=== PATIENT | female | born 1930 | race Caucasian/White ===

== ENCOUNTER 2016-07-06 21:45 | Observation (INO) | payer MEDICARE, OTHER ==
--- NOTE | 2016-07-06 21:54 | EDM.PDOC ---
ED HPI GENERAL MEDICAL PROBLEM - General Stated Complaint: SWOLLEN FACE Time Seen by Provider: 07/06/16 21:49 - History of Present Illness INITIAL COMMENTS - FREE TEXT/NARRATIVE: HISTORY AND PHYSICAL: History of present illness: Patient's an 86-year-old white female presents from [facility] with right facial lip and lingual edema times tonight patient is on lisinopril and states her mood medications have been stable there's been no recent changes she denies prior episodes she is a reasonable historian but has some limitations due to advanced age she is an extensive past medical history and has no other complaints Review of systems: As per history of present illness and below otherwise all systems reviewed and negative. Past medical history: As per history of present illness and as reviewed below otherwise noncontributory. Surgical history: As per history of present illness and as reviewed below otherwise noncontributory. Social history: No reported history of drug or alcohol abuse. Family history: As per history of present illness and as reviewed below otherwise noncontributory. Physical exam: HEENT: Angioedema noted right and left lip right common pharynx is normal Atraumatic, normocephalic, pupils reactive, negative for conjunctival pallor or scleral icterus, mucous membranes moist, throat clear, neck supple, nontender, trachea midline. Lungs: Clear to auscultation, breath sounds equal bilaterally, chest nontender. Heart: S1S2, regular, negative for clicks, rubs, or JVD. Abdomen: Soft, nondistended, nontender. Negative for masses or hepatosplenomegaly. Negative for costovertebral tenderness. Pelvis: Stable nontender. Genitourinary: Deferred. Rectal: Deferred. Extremities: Atraumatic, negative for cords or calf pain. Neurovascular unremarkable. Neuro: Awake, alert, oriented. Cranial nerves II through XII unremarkable. Cerebellum unremarkable. Motor and sensory unremarkable throughout. Exam nonfocal. Diagnostics: CBC CMP chest x-ray EKG Therapeutics: Solu-Medrol 125 mg IV Benadryl 25 mg a Impression: #1 angioedema #2 rule out drug reaction Definitive disposition and diagnosis as appropriate pending reevaluation and review of above. - Related Data Allergies Allergy/AdvReac Type Severity Reaction Status Date / Time No Known Allergies Allergy Verified 07/06/16 21:52 Home Meds: Home Meds Acetaminophen/Diphenhydramine [Tylenol Pm Ex-Strength Caplet] 1 tab PO DAILY [History] Aspirin 81 mg PO DAILY 06/23/15 [History] Levothyroxine [Synthroid] 88 mcg PO DAILY 06/23/15 [History] Lisinopril 20 mg PO DAILY #20 tablet 06/27/15 [Rx] atorvaSTATin [Lipitor] 40 mg PO BEDTIME #20 tablet 06/27/15 [Rx] Desoximetasone [Topicort 0.25% Crm] 60 gm .XX BID #1 tube 12/27/15 [Rx] Past Medical History HEENT History: Reports: None Cardiovascular History: Reports: Hypertension Respiratory History: Reports: None Gastrointestinal History: Reports: None Genitourinary History: Reports: None 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: None Musculoskeletal History: Reports: Gout, Osteoarthritis, Osteoporosis Neurological History: Reports: CVA Psychiatric History: Reports: None Endocrine/Metabolic History: Reports: Other (see below) Other Endocrine/Metabolic History: thyroid disease Immunologic History: Reports: None Dermatologic History: Reports: None - Infectious Disease History Infectious Disease History: Reports: None - Past Surgical History Cardiovascular Surgical History: Reports: None Endocrine Surgical History: Reports: None Neurological Surgical History: Reports: None Musculoskeletal Surgical History: Reports: Arthroscopic procedure Other Musculoskeletal Surgeries/Procedures:: right knee surgery, left knee replacement. Social & Family History - Family History Family Medical History: Noncontributory HEENT: Reports: Cataract Cardiac: Reports: Aneurysm, CAD Respiratory: Reports: Other (see below) Other Respiratory Family Hisory: PNA Musculoskeletal: Reports: Gout, Osteoarthritis, Osteoporosis Endocrine/Metabolic: Reports: Diabetes, type I - Tobacco Use Smoking Status *Q: Never Smoker - Recreational Drug Use Recreational Drug Use: No ED ROS GENERAL - Review of Systems Review Of Systems: ROS reveals no pertinent complaints other than HPI. ED EXAM, GENERAL - Physical Exam Exam: See Below (See dictation) Course - Vital Signs Last Recorded V/S: Last Vital Signs Temp Pulse 74 07/06/16 22:51 Resp 18 07/06/16 22:51 BP 175/89 H 07/06/16 22:51 Pulse Ox 98 07/06/16 22:51 - Orders/Labs/Meds Orders: Active Orders 24 hr Category Date Time Status EKG Documentation Completion [RC] STAT Care 07/06/16 21:55 Active Chest 1V Frontal [CR] Stat Exams 07/06/16 21:55 Taken Labs: Laboratory Tests 07/06/16 07/06/16 Range/Units 22:10 22:10 WBC 7.74 (4.0-11.0) K/uL RBC 4.21 L (4.30-5.90) M/uL Hgb 12.5 (12.0-16.0) g/dL Hct 37.0 (36.0-46.0) % MCV 87.9 (80.0-98.0) fL MCH 29.7 (27.0-32.0) pg MCHC 33.8 (31.0-37.0) g/dL RDW Std Deviation 47.2 (28.0-62.0) fl RDW Coeff of Tuyet 15 (11.0-15.0) % Plt Count 239 (150-400) K/uL MPV 8.90 (7.40-12.00) fL Neut % (Auto) 68.3 (48.0-80.0) % Lymph % (Auto) 20.2 (16.0-40.0) % [place] % (Auto) 7.1 (0.0-15.0) % Eos % (Auto) 3.2 (0.0-7.0) % Baso % (Auto) 1.2 (0.0-1.5) % Neut # 5.3 (1.4-5.7) K/uL Lymph # 1.6 (0.6-2.4) K/uL [place] # 0.6 (0.0-0.8) K/uL Eos # 0.3 (0.0-0.7) K/uL Baso # 0.1 (0.0-0.1) K/uL Nucleated RBC % 0.0 /100WBC Nucleated RBCs # 0 K/uL Sodium 135 L (136-146) mmol/L Potassium 4.3 (3.5-5.1) mmol/L Chloride 102 (98-110) mmol/L Carbon Dioxide 23 (21-31) mmol/L BUN 16 (6.0-23.0) mg/dL Creatinine 0.9 (0.6-1.5) mg/dL Est Cr Clr Drug Dosing TNP Estimated GFR (MDRD) 59.2 ml/min Glucose 108 (60-110) mg/dL Calcium 9.3 (8.8-10.8) mg/dL Total Bilirubin 0.3 (0.1-1.5) mg/dL AST 28 (5-40) IU/L ALT 22 (8-54) IU/L Alkaline Phosphatase 106 (40-150) Total Protein 7.0 (6.0-8.0) g/dL Albumin 3.8 (3.4-4.8) g/dL Globulin 3.2 (2.0-3.5) g/dL Albumin/Globulin Ratio 1.2 L (1.3-2.8) Meds: Medications Discontinued Medications Generic Name Dose Route Start Last Admin Trade Name Freq PRN Reason Stop Dose Admin Diphenhydramine HCl 25 mg 07/06/16 21:55 07/06/16 22:06 Benadryl IVPUSH 07/06/16 21:56 25 mg ONETIME ONE Administration Methylprednisolone Sodium Succinate 125 mg 07/06/16 21:55 07/06/16 22:10 Solu-Medrol IVPUSH 07/06/16 21:56 125 mg ONETIME ONE Administration Departure - Departure Time of Disposition: 23:13 Disposition: Admitted As Inpatient 65 Condition: good Clinical Impression: Angioedema - My Orders Last 24 Hours: My Active Orders 07/06/16 21:55 EKG Documentation Completion [RC] STAT Chest 1V Frontal [CR] Stat - Assessment/Plan Last 24 Hours: My Active Orders 07/06/16 21:55 EKG Documentation Completion [RC] STAT Chest 1V Frontal [CR] Stat
[2016-07-06] MEDS ORDERED: methylPREDNISolone Sodium Succinate 125 MG/2 ML SDV IVPUSH ONE (21:55)
[2016-07-06] MEDS ORDERED: diphenhydrAMINE 50 MG/ML SDV IVPUSH ONE (21:55)
[2016-07-06 22:39] LABS: CHLORIDE,CL 102 mmol/L (98-110); SODIUM,NA 135 mmol/L (136-146)
[2016-07-07] MEDS ORDERED: Morphine 2 MG/ML Syringe IVPUSH PRN (00:46)
[2016-07-07] MEDS ORDERED: cloNIDine 0.1 MG Tab PO ONE (00:46)
[2016-07-07] MEDS: Sodium Chloride 0.45% 1,000 ML IV SCH ×2 (01:36→16:32)
[2016-07-07] MEDS: diphenhydrAMINE 50 MG/ML SDV IVPUSH SCH ×4 (03:53→23:26)
[2016-07-07] MEDS: methylPREDNISolone Sodium Succinate 40 MG/1 ML SDV IVPUSH SCH ×4 (03:56→23:21)
[2016-07-07] MEDS ORDERED: Albuterol/Ipratropium 3.0-0.5 MG/3 ML Neb Soln NEB PRN (06:53)
[2016-07-07] MEDS ORDERED: Sodium Chloride 0.9% 10 ML Syringe FLUSH PRN (06:53)
[2016-07-07] MEDS ORDERED: Sodium Chloride 0.9% 2.5 ML Syringe FLUSH PRN (06:53)
[2016-07-07] MEDS ORDERED: Loperamide 2 MG Cap PO PRN (06:56)
[2016-07-07] MEDS ORDERED: Carboxymethylcellulose Sodium 0.5% Ophth Soln 0.4 ML UD Box of 30 EYEBOTH PRN (06:56)
[2016-07-07] MEDS ORDERED: CARBOXYMETHYLCELLULOSE EYEBOTH PRN (06:56)
[2016-07-07] MEDS ORDERED: Magnesium Hydroxide 400 MG/5 ML Susp 30 ML Cup PO PRN (06:56)
[2016-07-07] MEDS ORDERED: Bisacodyl 10 MG Supp RECTAL SCH (07:00)
[2016-07-07] MEDS ORDERED: Levothyroxine 100 MCG Tab PO SCH (07:35)
--- NOTE | 2016-07-07 08:26 | PCM.HP ---
<Monique Whaley - Last Filed: 07/07/16 11:01> H&P History of Present Illness - General Date of Service: 07/07/16 Admit Problem/Dx: Admission Diagnosis/Problem Admission Diagnosis/Problem Angioedema Source of Information: Patient - History of Present Illness Initial Comments - Free Text/Narative: 86 yo female from [facility] patient admitted for angioedema. She did not eat anything unusual. She has not started on any new medications. Difficult to obtain history from patient. Per nurse report she was noted to have lip swelling , facial edema and erythema with warmth last night at [facility]. In the ED her VSS. She recieved I.V methylprednisolone and benadryl. Spoke to the family in the hospital: they are not aware of any new medications except her synthroid was increased yesterday. She also had mixed nuts. She has been on lisinopril for years and did not have problems. Back Pain Score (Numeric/FACES): 4 - Related Data Allergies/Adverse Reactions: Allergies Allergy/AdvReac Type Severity Reaction Status Date / Time lisinopril Allergy Facial Verified 07/07/16 01:44 Swelling Home Medications: Home Meds Bisacodyl [Biscolax] 10 mg RC Q24H PRN 07/06/16 [History] Carbamide Peroxide [Debrox 6.5% Otic Soln] 1 drop EARBOTH BEDTIME PRN 07/06/16 [ History] Donepezil [Aricept] 5 mg PO DAILY 07/06/16 [History] Ibuprofen 400 mg PO BEDTIME PRN 07/06/16 [History] Loperamide HCl [Imodium A-D] 2 mg PO ASDIRECTED PRN MDD 8 mg 07/06/16 [History] Magnesium Hydroxide [Milk of Magnesia] 30 ml PO DAILY PRN 07/06/16 [History] Multivitamin [Multi-Vitamin Daily] 1 each PO DAILY 07/06/16 [History] Omeprazole 20 mg PO DAILY 07/06/16 [History] diphenhydrAMINE HCl [Banophen] 25 mg PO Q4HR PRN 07/06/16 [History] Acetaminophen [Acetaminophen Extra Strength] 500 mg PO QID PRN 07/07/16 [History ] Biotin 500 mcg PO DAILY 07/07/16 [History] Carboxymethylcellulose Sodium [Refresh Tears 0.5%] 1 drop EYEBOTH ASDIRECTED PRN 07/07/16 [History] Dextran 70/Hypromellose [Artificial Tears] 1 drop EYEBOTH BID PRN 07/07/16 [ History] Dextran 70/Hypromellose [Artificial Tears] 1 drop EYEBOTH TID PRN 07/07/16 [ History] Levothyroxine 125 mcg PO ACBREAKFAST 07/07/16 [History] Lisinopril 20 mg PO DAILY 07/07/16 [History] Melatonin 9 mg PO BEDTIME 07/07/16 [History] Nystatin [Nystop] 1 applic TOP TID 07/07/16 [History] Psyllium Husk (With Sugar) [Metamucil Powder] 2 tbsp PO DAILY PRN 07/07/16 [ History] atorvaSTATin [Lipitor] 40 mg PO BEDTIME 07/07/16 [History] buPROPion HCl [Wellbutrin SR] 150 mg PO DAILY 07/07/16 [History] Past Medical History HEENT History: Reports: Other (see below) Other HEENT History: Uses eyeglasses. Cardiovascular History: Reports: Hypertension, Other (see below) Other Cardiovascular History: stroke Respiratory History: Reports: None Gastrointestinal History: Reports: Other (see below) Other Gastrointestinal History: on omeprazole for heartburn/indigestion Genitourinary History: Reports: Urinary incontinence [employer]TE[employer] History: Reports: None Musculoskeletal History: Reports: Gout, Osteoarthritis, Osteoporosis Neurological History: Reports: CVA Psychiatric History: Reports: None Endocrine/Metabolic History: Reports: Hypothyroidism, Other (see below) Other Endocrine/Metabolic History: thyroid disease Hematologic History: Reports: None Immunologic History: Reports: None Oncologic (Cancer) History: Reports: None Dermatologic History: Reports: Other (see below) Other Dermatologic History: Redness noted to the breast folds, abdominal fold and bilaterla groin. - Infectious Disease History Infectious Disease History: Reports: None - Past Surgical History Head Surgeries/Procedures: Reports: None HEENT Surgical History: Reports: None Cardiovascular Surgical History: Reports: None GI Surgical History: Reports: None Endocrine Surgical History: Reports: None Neurological Surgical History: Reports: None Musculoskeletal Surgical History: Reports: Arthroscopic procedure Other Musculoskeletal Surgeries/Procedures:: right knee surgery, left knee replacement. Oncologic Surgical History: Reports: None Social & Family History - Family History Family Medical History: Noncontributory HEENT: Reports: Cataract Cardiac: Reports: Aneurysm, CAD Respiratory: Reports: Other (see below) Other Respiratory Family Hisory: PNA Musculoskeletal: Reports: Gout, Osteoarthritis, Osteoporosis Endocrine/Metabolic: Reports: Diabetes, type I - Tobacco Use Smoking Status *Q: Never Smoker Second Hand Smoke Exposure: No - Recreational Drug Use Recreational Drug Use: No H&P Review of Systems - Review of Systems: Review Of Systems: See Below General: Reports: no symptoms HEENT: Reports: no symptoms Pulmonary: Reports: no symptoms Cardiovascular: Reports: no symptoms Gastrointestinal: Reports: No symptoms Genitourinary: Reports: no symptoms Musculoskeletal: Reports: no symptoms Skin: Reports: no symptoms Psychiatric: Reports: no symptoms Neurological: Reports: no symptoms Hematologic/Lymphatic: Reports: no symptoms Exam - Exam Exam: See Below - Vital Signs Vital Signs: Last Vital Signs Temp 98.4 F 07/07/16 08:00 Pulse 81 07/07/16 08:00 Resp 20 07/07/16 08:00 BP 141/65 H 07/07/16 08:00 Pulse Ox 92 L 07/07/16 08:00 Weight: 207 lb 7.28 oz - Exam General: alert HEENT: EOMI, Other (Upper lip swelling and facial swelling without erythema or tenderness) Neck: supple, trachea midline Lungs: Decreased breath sounds Cardiovascular: regular rate, regular rhythm Abdomen: normal bowel sounds, soft (Female) Exam: Other (bilateral groin erythema) Extremities: normal inspection Skin: rash, other (bilateral breast and groin fold erythema. NO warmth or tenderness.) Neurological: cranial nerves intact - Patient Data Result Diagrams: 07/06/16 22:10 07/06/16 22:10 *Q Meaningful Use (ADM) - VTE *Q VTE Criteria *Q: - Stroke *Q Stroke Criteria *Q: - AMI *Q AMI Criteria *Q: Problem List Initiated/Reviewed/Updated: Yes Orders Last 24hrs: Active Orders 24 hr Category Date Time Status Patient Status [ADT] Routine ADT 07/07/16 06:53 Active Activity as Tolerated [RC] .Routine Care 07/07/16 00:44 Active Oxygen Therapy [RC] PRN Care 07/07/16 06:53 Active Pulse Oximetry [RC] PRN Care 07/07/16 06:55 Active RT Aerosol Therapy [RC] ASDIRECTED Care 07/07/16 06:56 Active Telemetry Monitoring [Cardiac Monitoring] [RC] . Care 07/07/16 00:00 Active DIRECTED Up ad Paloma [RC] ASDIRECTED Care 07/07/16 06:53 Active VTE/DVT Education [RC] PER UNIT ROUTINE Care 07/07/16 06:53 Active Vital Signs [RC] Q4H Care 07/07/16 06:53 Active Clear Liquid Diet [DIET] Diet 07/07/16 Breakfast Active Albuterol/Ipratropium [DuoNeb 3.0-0.5 MG/3 ML] Med 07/07/16 06:53 Active 3 ml NEB Q4HRRT PRN Bisacodyl [Dulcolax] Med 07/07/16 07:00 Active 10 mg RECTAL ASDIRECTED Carboxymethylcellulose Sodium [Refresh Plus 0.5%] Med 07/07/16 06:56 Active 1 each EYEBOTH BID PRN Carboxymethylcellulose Sodium [Refresh Plus 0.5%] Med 07/07/16 14:00 Active 1 each EYEBOTH TID Donepezil [Aricept] Med 07/07/16 09:00 Active 5 mg PO DAILY Enoxaparin [Lovenox] Med 07/07/16 09:00 Active 40 mg SUBCUT Q24H Levothyroxine [Synthroid] Med 07/07/16 07:35 Active 100 mcg PO ACBREAKFAST Loperamide [Imodium] Med 07/07/16 06:56 Active 2 mg PO ASDIRECTED PRN Magnesium Hydroxide [Milk of Magnesia] Med 07/07/16 06:56 Active 30 ml PO DAILY PRN Melatonin Med 07/07/16 21:00 Active 9 mg PO BEDTIME Morphine Med 07/07/16 00:46 Active 2 mg IVPUSH Q2H PRN Multivitamins [Tab-A-Manjinder] Med 07/07/16 09:00 Active 1 tab PO DAILY Nystatin [Nystatin Crm] Med 07/07/16 14:00 Active 1 gm TOP TID Omeprazole Med 07/07/16 09:00 Active 20 mg PO DAILY Patient's Own Medication [Ptom] Med 07/07/16 09:00 Active 1 each PO DAILY Psyllium Husk/Aspartame [Metamucil Sugar Free] Med 07/07/16 09:00 Active 1 pkt PO DAILY Sodium Chloride 0.45% 1,000 ml Med 07/07/16 00:45 Active IV ASDIRECTED Sodium Chloride 0.9% [Saline Flush] Med 07/07/16 06:53 Active 10 ml FLUSH ASDIRECTED PRN Sodium Chloride 0.9% [Saline Flush] Med 07/07/16 06:53 Active 2.5 ml FLUSH ASDIRECTED PRN atorvaSTATin [Lipitor] Med 07/07/16 21:00 Active 40 mg PO BEDTIME buPROPion [Wellbutrin SR] Med 07/07/16 09:00 Active 150 mg PO DAILY diphenhydrAMINE [Benadryl] Med 07/07/16 04:00 Active 50 mg IVPUSH Q6H methylPREDNISolone Sod Succ [Solu-MEDROL] Med 07/07/16 04:00 Active 60 mg IVPUSH Q6H Peripheral IV Insertion Adult [OM.PC] Routine Oth 07/07/16 06:53 Ordered Resuscitation Status Routine Resus Stat 07/07/16 06:53 Ordered Medication Orders Albuterol/Ipratropium (Duoneb 3.0-0.5 Mg/3 Ml) 3 ml NEB Q4HRRT PRN PRN Reason: Shortness Of Breath/wheezing Artificial Tears (Refresh Plus 0.5%) 1 each EYEBOTH BID PRN PRN Reason: Dry Eyes Artificial Tears (Refresh Plus 0.5%) 1 each EYEBOTH TID [facility] Atorvastatin Calcium (Lipitor) 40 mg PO BEDTIME [facility] Bisacodyl (Dulcolax) 10 mg RECTAL ASDIRECTED [facility] Bupropion HCl (Wellbutrin Sr) 150 mg PO DAILY [facility] Diphenhydramine HCl (Benadryl) 50 mg IVPUSH Q6H [facility] Last Admin: 07/07/16 03:53 Dose: 50 mg Donepezil HCl (Aricept) 5 mg PO DAILY [facility] Enoxaparin Sodium (Lovenox) 40 mg SUBCUT Q24H [facility] Sodium Chloride (Sodium Chloride 0.45%) 1,000 mls @ 75 mls/hr IV ASDIRECTED [facility] Last Admin: 07/07/16 01:36 Dose: 75 mls/hr Levothyroxine Sodium (Synthroid) 100 mcg PO ACBREAKFAST [facility] Last Admin: 07/07/16 07:59 Dose: 100 mcg Loperamide HCl (Imodium) 2 mg PO ASDIRECTED PRN PRN Reason: Diarrhea Magnesium Hydroxide (Milk Of Magnesia) 30 ml PO DAILY PRN PRN Reason: Constipation Melatonin (Melatonin) 9 mg PO BEDTIME [facility] Methylprednisolone Sodium Succinate (Solu-Medrol) 60 mg IVPUSH Q6H [facility] Last Admin: 07/07/16 03:56 Dose: 60 mg Morphine Sulfate (Morphine) 2 mg IVPUSH Q2H PRN PRN Reason: Pain Multivitamins/Minerals/Vitamin C (Tab-A-Manjinder) 1 tab PO DAILY [facility] Nystatin (Nystatin Crm) 1 gm TOP TID [facility] Omeprazole (Omeprazole) 20 mg PO DAILY [facility] Biotin 500mcg 1 each PO DAILY [facility] Psyllium Husk (Metamucil Sugar Free) 1 pkt PO DAILY [facility] Sodium Chloride (Saline Flush) 10 ml FLUSH ASDIRECTED PRN PRN Reason: Keep Vein Open Sodium Chloride (Saline Flush) 2.5 ml FLUSH ASDIRECTED PRN PRN Reason: Keep Vein Open Assessment/Plan Comment:: 86 yo female admitted for angioedema most likely lisnopril. continue methylprednisone and benadryl she is able to swallow and does not have difficult breathing. may start regular diet. monitor HTN: stable. Candidasis of groin and breast: nystatin cream <Amparo Dennis - Last Filed: 07/07/16 16:23> H&P History of Present Illness - General Admit Problem/Dx: Admission Diagnosis/Problem Admission Diagnosis/Problem Angioedema Exam - Vital Signs Vital Signs: Last Vital Signs Temp 97.7 F 07/07/16 12:00 Pulse 74 07/07/16 12:00 Resp 20 07/07/16 12:00 BP 146/73 H 07/07/16 12:00 Pulse Ox 94 L 07/07/16 12:00 - Patient Data Result Diagrams: 07/06/16 22:10 07/06/16 22:10 *Q Meaningful Use (ADM) - VTE *Q VTE Criteria *Q: - Stroke *Q Stroke Criteria *Q: - AMI *Q AMI Criteria *Q: Orders Last 24hrs: Active Orders 24 hr Category Date Time Status Patient Status [ADT] Routine ADT 07/07/16 06:53 Active Activity as Tolerated [RC] .Routine Care 07/07/16 00:44 Active Oxygen Therapy [RC] PRN Care 07/07/16 06:53 Active RT Aerosol Therapy [RC] ASDIRECTED Care 07/07/16 06:56 Active Telemetry Monitoring [Cardiac Monitoring] [RC] Q8H Care 07/07/16 00:00 Active Up ad Paloma [RC] ASDIRECTED Care 07/07/16 06:53 Active Vital Signs [RC] Q4H Care 07/07/16 06:53 Active Regular Diet [DIET] Diet 07/07/16 Lunch Active Albuterol/Ipratropium [DuoNeb 3.0-0.5 MG/3 ML] Med 07/07/16 06:53 Active 3 ml NEB Q4HRRT PRN Bisacodyl [Dulcolax] Med 07/07/16 07:00 Active 10 mg RECTAL ASDIRECTED Carboxymethylcellulose Sodium [Refresh Plus 0.5%] Med 07/07/16 06:56 Active 1 each EYEBOTH BID PRN Carboxymethylcellulose Sodium [Refresh Plus 0.5%] Med 07/07/16 14:00 Active 1 each EYEBOTH TID Donepezil [Aricept] Med 07/07/16 09:00 Active 5 mg PO DAILY Enoxaparin [Lovenox] Med 07/07/16 09:00 Active 40 mg SUBCUT Q24H Levothyroxine Med 07/08/16 07:30 Active 125 mcg PO ACBREAKFAST Loperamide [Imodium] Med 07/07/16 06:56 Active 2 mg PO ASDIRECTED PRN Magnesium Hydroxide [Milk of Magnesia] Med 07/07/16 06:56 Active 30 ml PO DAILY PRN Melatonin Med 07/07/16 21:00 Active 9 mg PO BEDTIME Morphine Med 07/07/16 00:46 Active 2 mg IVPUSH Q2H PRN Multivitamins [Tab-A-Manjinder] Med 07/07/16 09:00 Active 1 tab PO DAILY Nystatin [Nystatin Crm] Med 07/07/16 14:00 Active 1 gm TOP TID Omeprazole Med 07/07/16 09:00 Active 20 mg PO DAILY Patient's Own Medication [Ptom] Med 07/07/16 09:00 Active 1 each PO DAILY Psyllium Husk/Aspartame [Metamucil Sugar Free] Med 07/07/16 09:00 Active 1 pkt PO DAILY Sodium Chloride 0.45% 1,000 ml Med 07/07/16 00:45 Active IV ASDIRECTED Sodium Chloride 0.9% [Saline Flush] Med 07/07/16 06:53 Active 10 ml FLUSH ASDIRECTED PRN Sodium Chloride 0.9% [Saline Flush] Med 07/07/16 06:53 Active 2.5 ml FLUSH ASDIRECTED PRN atorvaSTATin [Lipitor] Med 07/07/16 21:00 Active 40 mg PO BEDTIME buPROPion [Wellbutrin SR] Med 07/07/16 09:00 Active 150 mg PO DAILY diphenhydrAMINE [Benadryl] Med 07/07/16 04:00 Active 50 mg IVPUSH Q6H methylPREDNISolone Sod Succ [Solu-MEDROL] Med 07/07/16 04:00 Active 60 mg IVPUSH Q6H Peripheral IV Insertion Adult [OM.PC] Routine Oth 07/07/16 06:53 Ordered Resuscitation Status Routine Resus Stat 07/07/16 06:53 Ordered Medication Orders Albuterol/Ipratropium (Duoneb 3.0-0.5 Mg/3 Ml) 3 ml NEB Q4HRRT PRN PRN Reason: Shortness Of Breath/wheezing Artificial Tears (Refresh Plus 0.5%) 1 each EYEBOTH BID PRN PRN Reason: Dry Eyes Artificial Tears (Refresh Plus 0.5%) 1 each EYEBOTH TID [facility] Last Admin: 07/07/16 14:09 Dose: 1 drop Atorvastatin Calcium (Lipitor) 40 mg PO BEDTIME [facility] Bisacodyl (Dulcolax) 10 mg RECTAL ASDIRECTED [facility] Bupropion HCl (Wellbutrin Sr) 150 mg PO DAILY [facility] Last Admin: 07/07/16 09:14 Dose: 150 mg Diphenhydramine HCl (Benadryl) 50 mg IVPUSH Q6H [facility] Last Admin: 07/07/16 09:15 Dose: 50 mg Admin: 07/07/16 03:53 Dose: 50 mg Donepezil HCl (Aricept) 5 mg PO DAILY [facility] Last Admin: 07/07/16 09:14 Dose: 5 mg Enoxaparin Sodium (Lovenox) 40 mg SUBCUT Q24H [facility] Last Admin: 07/07/16 09:14 Dose: 40 mg Sodium Chloride (Sodium Chloride 0.45%) 1,000 mls @ 75 mls/hr IV ASDIRECTED [facility] Last Admin: 07/07/16 01:36 Dose: 75 mls/hr Levothyroxine Sodium (Levothyroxine) 125 mcg PO ACBREAKFAST [facility] Loperamide HCl (Imodium) 2 mg PO ASDIRECTED PRN PRN Reason: Diarrhea Magnesium Hydroxide (Milk Of Magnesia) 30 ml PO DAILY PRN PRN Reason: Constipation Melatonin (Melatonin) 9 mg PO BEDTIME [facility] Methylprednisolone Sodium Succinate (Solu-Medrol) 60 mg IVPUSH Q6H [facility] Last Admin: 07/07/16 09:15 Dose: 60 mg Admin: 07/07/16 03:56 Dose: 60 mg Morphine Sulfate (Morphine) 2 mg IVPUSH Q2H PRN PRN Reason: Pain Multivitamins/Minerals/Vitamin C (Tab-A-Manjinder) 1 tab PO DAILY [facility] Last Admin: 07/07/16 09:13 Dose: 1 tab Nystatin (Nystatin Crm) 1 gm TOP TID [facility] Last Admin: 07/07/16 14:05 Dose: 1 applic Omeprazole (Omeprazole) 20 mg PO DAILY [facility] Last Admin: 07/07/16 09:13 Dose: 20 mg Biotin 500mcg 1 each PO DAILY [facility] Last Admin: 07/07/16 09:15 Dose: Psyllium Husk (Metamucil Sugar Free) 1 pkt PO DAILY [facility] Last Admin: 07/07/16 09:14 Dose: 1 pkt Sodium Chloride (Saline Flush) 10 ml FLUSH ASDIRECTED PRN PRN Reason: Keep Vein Open Sodium Chloride (Saline Flush) 2.5 ml FLUSH ASDIRECTED PRN PRN Reason: Keep Vein Open Assessment/Plan Comment:: HTN u/c - patient received last night clonidine 0.2 mg po 1 dose, will f/up bp. As lisinopril was d/c will start patient on amlodipine 10 mg po daily.
[2016-07-07] MEDS ORDERED: Non-Formulary Medication 1 Each (Lisinopril 20 MG) PO SCH (09:00)
[2016-07-07] MEDS: Omeprazole 20 MG Cap.CR PO SCH (09:13)
[2016-07-07] MEDS: Multivitamin Tab PO SCH (09:13)
[2016-07-07] MEDS: buPROPion 150 MG Tab.SR PO SCH (09:14)
[2016-07-07] MEDS: Psyllium Husk Powder Sugar Free 5.85 GM Packet PO SCH (09:14)
[2016-07-07] MEDS: Donepezil 5 MG Tab PO SCH (09:14)
[2016-07-07] MEDS: Enoxaparin 40 MG/0.4 ML Syringe SUBCUT SCH (09:14)
[2016-07-07] MEDS: BIOTIN 500 MCG PO SCH (09:15)
[2016-07-07] MEDS: Nystatin Crm 30 GM Tube TOP SCH ×2 (14:05→23:21)
[2016-07-07] MEDS: Carboxymethylcellulose Sodium 0.5% Ophth Soln 0.4 ML UD Box of 30 EYEBOTH SCH ×2 (14:09→23:20)
--- NOTE | 2016-07-07 14:22 | CR ---
EXAM DATE: 07/06/16 PATIENT'S AGE: 86 Patient: STEF LOMELI Facility: [place], [place] Site . Site : [id number] Study: XRay Chest [id number] 10:[id number] PM Ordering Physician: Doctor Gibson Final Report: Indication: Headache Technique: Chest 1 view. Comparison: December 27, 2019 60 Findings: Cardiovascular and mediastinum: Heart size and vasculature are normal in caliber and appearance. Mediastinum is within normal limits. Lungs and pleural space: Lungs are clear. No sign of infiltrate or mass. No sign of pleural effusion. No pneumothorax. Bones and soft tissues: No significant findings. Impression: No sign of acute disease. Dictated by Jaylyn Robles MD @ Jul 06 2016 10:18PM (Electronic Signature) Report Signed by Proxy and Original Signed Document filed in the Medical Record. SADIE
[2016-07-07] MEDS ORDERED: Melatonin 3 MG Tab PO SCH (21:00)
[2016-07-07] MEDS ORDERED: atorvaSTATin 40 MG Tab PO SCH (21:00)
[2016-07-08] MEDS: diphenhydrAMINE 50 MG/ML SDV IVPUSH SCH (04:10)
[2016-07-08] MEDS: methylPREDNISolone Sodium Succinate 40 MG/1 ML SDV IVPUSH SCH (04:17)
[2016-07-08] MEDS: Sodium Chloride 0.45% 1,000 ML IV SCH (06:35)
[2016-07-08] MEDS: Carboxymethylcellulose Sodium 0.5% Ophth Soln 0.4 ML UD Box of 30 EYEBOTH SCH (06:38)
[2016-07-08] MEDS: Nystatin Crm 30 GM Tube TOP SCH (06:39)
[2016-07-08] MEDS ORDERED: Levothyroxine 125 MCG Tab PO SCH (07:30)
[2016-07-08] MEDS: buPROPion 150 MG Tab.SR PO SCH (08:45)
[2016-07-08] MEDS: Donepezil 5 MG Tab PO SCH (08:45)
[2016-07-08] MEDS: Omeprazole 20 MG Cap.CR PO SCH (08:45)
[2016-07-08] MEDS: Psyllium Husk Powder Sugar Free 5.85 GM Packet PO SCH (08:45)
[2016-07-08] MEDS: Multivitamin Tab PO SCH (08:45)
[2016-07-08] MEDS: BIOTIN 500 MCG PO SCH (08:46)
[2016-07-08] MEDS: Enoxaparin 40 MG/0.4 ML Syringe SUBCUT SCH (08:46)
--- NOTE | 2016-07-08 11:01 | PCM.DCSUM1 ---
<JuddMonique - Last Filed: 07/08/16 12:56> Discharge Summary - Hospital Course Free Text/Narrative:: 86 [facility] for angioedema of the face. She had lip swelling and facial erythema. She was started on I.V steroids and benadryl. Her lisinopril was discontinued. Her facial erythema and lip swelling had improved. She was able to eat. She was started on norvasc for blood pressure. She is discharged with one more day PO prednisone. - Discharge Data Discharge Date: 07/08/16 Discharge Disposition: DC/Tfer to [facility] 03 Condition: Good - Patient Instructions Diet: Regular Diet as Tolerated Activity: As Tolerated Driving: Do Not Drive Showering/Bathing: May Shower Notify Provider of: Fever, Increased Pain, Swelling and Redness, Drainage, Nausea and/or Vomiting - Discharge Plan Home Medications: Home Meds Bisacodyl [Biscolax] 10 mg RC Q24H PRN 07/06/16 [History] Carbamide Peroxide [Debrox 6.5% Otic Soln] 1 drop EARBOTH BEDTIME PRN 07/06/16 [ History] Donepezil [Aricept] 5 mg PO DAILY 07/06/16 [History] Ibuprofen 400 mg PO BEDTIME PRN 07/06/16 [History] Loperamide HCl [Imodium A-D] 2 mg PO ASDIRECTED PRN MDD 8 mg 07/06/16 [History] Magnesium Hydroxide [Milk of Magnesia] 30 ml PO DAILY PRN 07/06/16 [History] Multivitamin [Multi-Vitamin Daily] 1 each PO DAILY 07/06/16 [History] Omeprazole 20 mg PO DAILY 07/06/16 [History] diphenhydrAMINE HCl [Banophen] 25 mg PO Q4HR PRN 07/06/16 [History] Acetaminophen [Acetaminophen Extra Strength] 500 mg PO QID PRN 07/07/16 [History ] Biotin 500 mcg PO DAILY 07/07/16 [History] Carboxymethylcellulose Sodium [Refresh Tears 0.5%] 1 drop EYEBOTH ASDIRECTED PRN 07/07/16 [History] Dextran 70/Hypromellose [Artificial Tears] 1 drop EYEBOTH BID PRN 07/07/16 [ History] Dextran 70/Hypromellose [Artificial Tears] 1 drop EYEBOTH TID PRN 07/07/16 [ History] Levothyroxine 125 mcg PO ACBREAKFAST 07/07/16 [History] Melatonin 9 mg PO BEDTIME 07/07/16 [History] Nystatin [Nystop] 1 applic TOP TID 07/07/16 [History] Psyllium Husk (With Sugar) [Metamucil Powder] 2 tbsp PO DAILY PRN 07/07/16 [ History] atorvaSTATin [Lipitor] 40 mg PO BEDTIME 07/07/16 [History] buPROPion HCl [Wellbutrin SR] 150 mg PO DAILY 07/07/16 [History] Patient Handouts: Angioedema, [id number] Referrals: Sterling Diaz MD [Primary Care Provider] - 07/22/16 (On his next [place] rounds. ) - General Info Date of Service: 07/08/16 Functional Status: Reports: tolerating diet - Review of Systems General: Reports: no symptoms HEENT: Reports: no symptoms Pulmonary: Reports: no symptoms Cardiovascular: Reports: no symptoms Gastrointestinal: Reports: No symptoms Musculoskeletal: Reports: no symptoms Skin: Reports: no symptoms Neurological: Reports: no symptoms Psychiatric: Reports: no symptoms - Patient Data Vitals - Most Recent: Last Vital Signs Temp 97.8 F 07/08/16 08:00 Pulse 90 07/08/16 08:00 Resp 20 07/08/16 08:00 BP 128/61 07/08/16 08:00 Pulse Ox 96 07/08/16 08:00 Weight - Most Recent: 207 lb 7.28 oz I&O - Last 24 hours: Intake & Output 07/07/16 07/08/16 07/08/16 22:59 06:59 14:59 Intake Total 1531 1629 Output Total 707 Balance 1531 922 Med Orders - Current: Current Medications Albuterol/Ipratropium (Duoneb 3.0-0.5 Mg/3 Ml) 3 ml NEB Q4HRRT PRN PRN Reason: Shortness Of Breath/wheezing Artificial Tears (Refresh Plus 0.5%) 1 each EYEBOTH BID PRN PRN Reason: Dry Eyes Artificial Tears (Refresh Plus 0.5%) 1 each EYEBOTH TID ZAFAR Last Admin: 07/08/16 06:38 Dose: 1 drop Atorvastatin Calcium (Lipitor) 40 mg PO BEDTIME [facility] Last Admin: 07/07/16 20:41 Dose: 40 mg Bisacodyl (Dulcolax) 10 mg RECTAL ASDIRECTED [facility] Bupropion HCl (Wellbutrin Sr) 150 mg PO DAILY [facility] Last Admin: 07/08/16 08:45 Dose: 150 mg Donepezil HCl (Aricept) 5 mg PO DAILY [facility] Last Admin: 07/08/16 08:45 Dose: 5 mg Enoxaparin Sodium (Lovenox) 40 mg SUBCUT Q24H [facility] Last Admin: 07/08/16 08:46 Dose: 40 mg Sodium Chloride (Sodium Chloride 0.45%) 1,000 mls @ 75 mls/hr IV ASDIRECTED [facility] Last Admin: 07/08/16 06:35 Dose: 75 mls/hr Levothyroxine Sodium (Levothyroxine) 125 mcg PO ACBREAKFAST [facility] Last Admin: 07/08/16 06:38 Dose: 125 mcg Loperamide HCl (Imodium) 2 mg PO ASDIRECTED PRN PRN Reason: Diarrhea Magnesium Hydroxide (Milk Of Magnesia) 30 ml PO DAILY PRN PRN Reason: Constipation Melatonin (Melatonin) 9 mg PO BEDTIME [facility] Last Admin: 07/07/16 20:41 Dose: 9 mg Morphine Sulfate (Morphine) 2 mg IVPUSH Q2H PRN PRN Reason: Pain Multivitamins/Minerals/Vitamin C (Tab-A-Manjinder) 1 tab PO DAILY [facility] Last Admin: 07/08/16 08:45 Dose: 1 tab Nystatin (Nystatin Crm) 1 gm TOP TID [facility] Last Admin: 07/08/16 06:39 Dose: 1 applic Omeprazole (Omeprazole) 20 mg PO DAILY [facility] Last Admin: 07/08/16 08:45 Dose: 20 mg Biotin 500mcg 1 each PO DAILY [facility] Last Admin: 07/08/16 08:46 Dose: Not Given Psyllium Husk (Metamucil Sugar Free) 1 pkt PO DAILY [facility] Last Admin: 07/08/16 08:45 Dose: 1 pkt Sodium Chloride (Saline Flush) 10 ml FLUSH ASDIRECTED PRN PRN Reason: Keep Vein Open Last Admin: 07/08/16 04:13 Dose: 10 ml Sodium Chloride (Saline Flush) 2.5 ml FLUSH ASDIRECTED PRN PRN Reason: Keep Vein Open Discontinued Medications Clonidine HCl (Catapres) 0.2 mg PO ONETIME ONE Stop: 07/07/16 00:47 Last Admin: 07/07/16 01:31 Dose: 0.2 mg Diphenhydramine HCl (Benadryl) 25 mg IVPUSH ONETIME ONE Stop: 07/06/16 21:56 Last Admin: 07/06/16 22:06 Dose: 25 mg Diphenhydramine HCl (Benadryl) 50 mg IVPUSH Q6H [facility] Last Admin: 07/08/16 04:10 Dose: 50 mg Levothyroxine Sodium (Synthroid) 100 mcg PO ACBREAKFAST [facility] Last Admin: 07/07/16 07:59 Dose: 100 mcg Methylprednisolone Sodium Succinate (Solu-Medrol) 125 mg IVPUSH ONETIME ONE Stop: 07/06/16 21:56 Last Admin: 07/06/16 22:10 Dose: 125 mg Methylprednisolone Sodium Succinate (Solu-Medrol) 60 mg IVPUSH Q6H [facility] Last Admin: 07/08/16 04:17 Dose: 60 mg Non-Formulary Medication (Lisinopril) 20 mg PO DAILY [facility] Non-Formulary Medication (Carboxymethylcellulose [Methocel E 4 M]) 1 drop EYEBOTH DAILY PRN PRN Reason: Dry Eyes - Exam General: Reports: alert, oriented HEENT: Reports: Pupils equal, EOMI, Other (lips swelling has improved. NO facial edema or erythema) Neck: Reports: supple, trachea midline Lungs: Reports: Clear to auscultation, Normal respiratory effort Cardiovascular: Reports: regular rate, regular rhythm Abdomen: Reports: bowel sounds present, soft Back Exam: Reports: normal inspection Extremities: Reports: no edema Skin: Reports: warm, dry, intact Neurological: Reports: no new focal deficit Psy/Mental Status: Reports: alert, normal affect, normal mood *Q Meaningful Use (DIS) - VTE *Q VTE Criteria *Q: - Stroke *Q Stroke Criteria *Q: - AMI *Q AMI Criteria *Q: <Amparo Dennis - Last Filed: 07/08/16 20:43> Discharge Summary - Hospital Course Free Text/Narrative:: Patient was seen and examined , agree with discharge summary. She was discussed with resident. For blood pressure patient was started on amlodipine 10 mg po daily , f/up BP. - Patient Data Vitals - Most Recent: Last Vital Signs Temp 97.8 F 07/08/16 12:00 Pulse 87 07/08/16 12:00 Resp 22 H 07/08/16 12:00 BP 170/78 H 07/08/16 12:27 Pulse Ox 98 07/08/16 12:00 I&O - Last 24 hours: Intake & Output 07/08/16 07/08/16 07/08/16 06:59 14:59 22:59 Intake Total 1629 500 Output Total 707 700 Balance 922 -200 Med Orders - Current: Current Medications Discontinued Medications Albuterol/Ipratropium (Duoneb 3.0-0.5 Mg/3 Ml) 3 ml NEB Q4HRRT PRN PRN Reason: Shortness Of Breath/wheezing Amlodipine Besylate (Norvasc) 10 mg PO DAILY [facility] Amlodipine Besylate (Norvasc) 10 mg PO ONETIME ONE Stop: 07/08/16 11:59 Last Admin: 07/08/16 12:27 Dose: 10 mg Artificial Tears (Refresh Plus 0.5%) 1 each EYEBOTH BID PRN PRN Reason: Dry Eyes Artificial Tears (Refresh Plus 0.5%) 1 each EYEBOTH TID [facility] Last Admin: 07/08/16 06:38 Dose: 1 drop Atorvastatin Calcium (Lipitor) 40 mg PO BEDTIME [facility] Last Admin: 07/07/16 20:41 Dose: 40 mg Bisacodyl (Dulcolax) 10 mg RECTAL ASDIRECTED [facility] Bupropion HCl (Wellbutrin Sr) 150 mg PO DAILY [facility] Last Admin: 07/08/16 08:45 Dose: 150 mg Clonidine HCl (Catapres) 0.2 mg PO ONETIME ONE Stop: 07/07/16 00:47 Last Admin: 07/07/16 01:31 Dose: 0.2 mg Diphenhydramine HCl (Benadryl) 25 mg IVPUSH ONETIME ONE Stop: 07/06/16 21:56 Last Admin: 07/06/16 22:06 Dose: 25 mg Diphenhydramine HCl (Benadryl) 50 mg IVPUSH Q6H [facility] Last Admin: 07/08/16 04:10 Dose: 50 mg Donepezil HCl (Aricept) 5 mg PO DAILY [facility] Last Admin: 07/08/16 08:45 Dose: 5 mg Enoxaparin Sodium (Lovenox) 40 mg SUBCUT Q24H [facility] Last Admin: 07/08/16 08:46 Dose: 40 mg Sodium Chloride (Sodium Chloride 0.45%) 1,000 mls @ 75 mls/hr IV ASDIRECTED [facility] Last Admin: 07/08/16 06:35 Dose: 75 mls/hr Levothyroxine Sodium (Synthroid) 100 mcg PO ACBREAKFAST [facility] Last Admin: 07/07/16 07:59 Dose: 100 mcg Levothyroxine Sodium (Levothyroxine) 125 mcg PO ACBREAKFAST [facility] Last Admin: 07/08/16 06:38 Dose: 125 mcg Loperamide HCl (Imodium) 2 mg PO ASDIRECTED PRN PRN Reason: Diarrhea Magnesium Hydroxide (Milk Of Magnesia) 30 ml PO DAILY PRN PRN Reason: Constipation Melatonin (Melatonin) 9 mg PO BEDTIME [facility] Last Admin: 07/07/16 20:41 Dose: 9 mg Methylprednisolone Sodium Succinate (Solu-Medrol) 125 mg IVPUSH ONETIME ONE Stop: 07/06/16 21:56 Last Admin: 07/06/16 22:10 Dose: 125 mg Methylprednisolone Sodium Succinate (Solu-Medrol) 60 mg IVPUSH Q6H [facility] Last Admin: 07/08/16 04:17 Dose: 60 mg Morphine Sulfate (Morphine) 2 mg IVPUSH Q2H PRN PRN Reason: Pain Multivitamins/Minerals/Vitamin C (Tab-A-Manjinder) 1 tab PO DAILY [facility] Last Admin: 07/08/16 08:45 Dose: 1 tab Non-Formulary Medication (Lisinopril) 20 mg PO DAILY [facility] Non-Formulary Medication (Carboxymethylcellulose [Methocel E 4 M]) 1 drop EYEBOTH DAILY PRN PRN Reason: Dry Eyes Nystatin (Nystatin Crm) 1 gm TOP TID [facility] Last Admin: 07/08/16 06:39 Dose: 1 applic Omeprazole (Omeprazole) 20 mg PO DAILY [facility] Last Admin: 07/08/16 08:45 Dose: 20 mg Biotin 500mcg 1 each PO DAILY [facility] Last Admin: 07/08/16 08:46 Dose: Not Given Prednisone (Prednisone) 40 mg PO ONETIME ONE Stop: 07/09/16 11:36 Prednisone (Prednisone) 40 mg PO ONETIME ONE Stop: 07/08/16 11:46 Last Admin: 07/08/16 11:39 Dose: 40 mg Psyllium Husk (Metamucil Sugar Free) 1 pkt PO DAILY ZAFAR Last Admin: 07/08/16 08:45 Dose: 1 pkt Sodium Chloride (Saline Flush) 10 ml FLUSH ASDIRECTED PRN PRN Reason: Keep Vein Open Last Admin: 07/08/16 04:13 Dose: 10 ml Sodium Chloride (Saline Flush) 2.5 ml FLUSH ASDIRECTED PRN PRN Reason: Keep Vein Open *Q Meaningful Use (DIS) - VTE *Q VTE Criteria *Q: - Stroke *Q Stroke Criteria *Q: - AMI *Q AMI Criteria *Q:
[2016-07-08] MEDS ORDERED: predniSONE 20 MG Tab PO ONE (11:45)
[2016-07-08] MEDS ORDERED: amLODIPine 5 MG Tab PO ONE (11:58)
[2016-07-08 13:24] VITALS: BP 148/67
[2016-07-09] MEDS ORDERED: amLODIPine 5 MG Tab PO SCH (09:00)
[2016-07-09] MEDS ORDERED: predniSONE 20 MG Tab PO ONE (11:35)
== END 2016-07-08 13:45 ==
LOC: MW.ED 21:45 → MW.MS 23:15
PROVIDERS: ADMIT Internal Medicine; ATTEND Internal Medicine
DX: I10 Essential (primary) hypertension (principal); B37.89 Other sites of candidiasis; E03.9 Hypothyroidism, unspecified; Z79.899 Other long term (current) drug therapy; Z98.890 Other specified postprocedural states
CPT/HCPCS: 36415; 71010; 80053; 85025; 93005; 96361; 96372; 96374; 96375; 96376; 99284; A9270; G0378; J1200; J1650; J2920; J2930; J7030; 99285

== ENCOUNTER → 2016-07-22 | Outpatient (CLI) | payer MEDICARE, OTHER | LOC: MW.CHNEURO 08:00 | PROVIDERS: ATTEND Psychiatry & Neurology Neuromuscular Medicine | DX: R27.0 Ataxia, unspecified (principal); G31.84 Mild cognitive impairment of uncertain or unknown etiology | CPT/HCPCS: 99214 ==